=== PATIENT | female | born 1990 | race African-American/Black ===

== ENCOUNTER 2017-02-13 13:18 | Emergency (ER) | payer SELFPAY ==
[2017-02-13] MEDS ORDERED: Ibuprofen 800 MG TAB ONE (14:38)
== END 2017-02-13 14:58 | disposition home or self-care (01) ==
LOC: SCSER 13:18
DX: J02.9 Acute pharyngitis, unspecified (principal)
CPT/HCPCS: 87081; 87430; 99284

== ENCOUNTER 2017-04-05 04:39 | Emergency (ER) | payer SELFPAY ==
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
== END 2017-04-05 06:22 | disposition home or self-care (01) ==
LOC: ERS 04:39
DX: S00.12XA Contusion of left eyelid and periocular area, initial encounter (principal); Y04.2XXA Assault by strike against or bumped into by another person, initial encounter
CPT/HCPCS: 70486

== ENCOUNTER 2019-05-28 12:31 | Emergency (ER) | payer OTHER, SELFPAY ==
[2019-05-28] MEDS ORDERED: Dexamethasone 10 MG/ML VIAL ONE (13:24)
== END 2019-05-28 13:31 | disposition home or self-care (01) ==
LOC: ERS 12:31
DX: J06.9 Acute upper respiratory infection, unspecified (principal)
CPT/HCPCS: 87804; 99283; J1100

== ENCOUNTER 2020-03-08 12:27 | Emergency (ER) | payer SELFPAY ==
[2020-03-08 13:13] LABS: BHCG - Serum Negative (NEGATIVE); Pregs Control Background? CLEAR/WHITE (CLR/WHITE); Pregs Control Bar Appear? YES (CONTROL BAR)
== END 2020-03-08 13:30 | disposition home or self-care (01) ==
LOC: ERS 12:27
DX: R11.2 Nausea with vomiting, unspecified (principal)
CPT/HCPCS: 36415; 84703; 99284

== ENCOUNTER 2021-01-08 21:07 | Emergency (ER) | payer SELFPAY ==
[2021-01-09 00:26] LABS: SARS-CoV-2 PCR by NAA DETECTED (NotDetected)
== END 2021-01-08 21:47 | disposition home or self-care (01) ==
LOC: ERS 21:07
DX: U07.1 COVID-19 (principal); F17.290 Nicotine dependence, other tobacco product, uncomplicated
CPT/HCPCS: 99281; U0003; U0005

== ENCOUNTER 2021-07-10 11:05 | Emergency (ER) | payer SELFPAY, OTHER ==
[2021-07-10] MEDS ORDERED: Ondansetron ODT 4 MG TAB ONE (11:30)
== END 2021-07-10 12:31 | disposition home or self-care (01) ==
LOC: ERS 11:05
DX: R11.2 Nausea with vomiting, unspecified (principal); R19.7 Diarrhea, unspecified; F17.290 Nicotine dependence, other tobacco product, uncomplicated
CPT/HCPCS: 99283; Q0162

== ENCOUNTER 2025-01-27 18:39 | Emergency (ER) | payer OTHER, SELFPAY | END 2025-01-27 20:04 | disposition home or self-care (01) | LOC: ERS 18:39 | DX: J02.9 Acute pharyngitis, unspecified (principal); R13.11 Dysphagia, oral phase; F17.290 Nicotine dependence, other tobacco product, uncomplicated | CPT/HCPCS: 87081; 87430; 99283 ==